=== PATIENT | female | born 1945 | race Caucasian/White ===

== ENCOUNTER → 2016-10-21 12:37 | Outpatient (CLI) | payer MEDICARE, OTHER | END | disposition home or self-care (01) | LOC: D.MRI 12:37 | DX: M79.672 Pain in left foot (principal) ==

== ENCOUNTER → 2017-04-29 07:46 | Outpatient (CLI) | payer MEDICARE, OTHER | END | disposition home or self-care (01) | LOC: D.CT 07:46 | DX: J01.90 Acute sinusitis, unspecified (principal) ==

== ENCOUNTER 2017-07-21 06:47 | Outpatient (CLI) | payer MEDICARE, OTHER ==
[~2017-07-21] VITALS: Ht 165.1 cm; Wt 79.4 kg
--- NOTE | ~2017-07-21 | CN ---
PATIENT NAME:LIN CERVANTES MEDICAL RECORD: [id number] : 49 LOCATION:[facility] ADMIT DATE: ACCOUNT: [id number] CONSULTING PHYSICIAN: CLAY KEEN MD REFERRING PHYSICIAN: ORAL BERUMEN MD DATE OF CONSULTATION: 07/21/2017 CARDIOLOGY CONSULT DIAGNOSES: 1. Shortness of breath. 2. Abnormal ECG. 3. Hypertension. 4. Hyperlipidemia. 5. Preop evaluation. HISTORY OF PRESENT ILLNESS: Mrs. Cervantes is here for maxillofacial surgery. Her EKG shows T-wave inversions throughout the anterolateral leads. She does complain of shortness of breath. No real chest pain. She had a cardiac catheterization 10 years ago that did have some stenosis, but nothing that was bad enough for intervention. PHYSICAL EXAMINATION: GENERAL APPEARANCE: Well-nourished, well-developed, appears stated age. Level of distress, comfortable. PSYCHIATRIC: Mental status, alert, normal affect. Orientation, oriented to time, place and person. EYES: Lids and conjunctiva, noninjected. No discharge, no pallor. ENT: Lips, teeth, gums, normal dentition. Oropharynx, no cyanosis, no pallor. NECK: Carotid arteries, bilateral normal upstroke, no bruits, no thrills. JUGULAR VEINS: No jugular venous pressure or distention. CERVICAL LYMPH NODES: Nontender, nonenlarged. THYROID: Not enlarged. Nontender. No nodules. LUNGS: Respiratory effort, unlabored. CHEST: Normal curvature. No thoracic deformity. No chest wall tenderness. Percussion, resonant. Auscultation, clear. No wheezes, no rales, no rhonchi. CARDIOVASCULAR: Precordial exam, nondisplaced. No heaves or pericardial thrills. Rate and rhythm, regular. Heart sounds, normal S1, normal S2. No S3, no gallop, no rub. Systolic murmur, not heard. Diastolic murmur, not heard. EXTREMITIES: No cyanosis, no edema. Peripheral pulses, full and equal in all extremities, except as noted. No bruits appreciated. ABDOMEN: Soft, nondistended. Normal aorta. No bruit. Nontender. No masses. Liver, nontender, no hepatomegaly. Spleen, nontender, no splenomegaly. MUSCULOSKELETAL: No joint tenderness. No joint swelling. No erythema. NEUROLOGICAL: Normal gait, normal strength, normal tone. SKIN: Warm and dry. REVIEW OF SYSTEMS: The patient reports easy bruising but reports no swollen glands. The patient reports no fever, no night sweats, no significant weight gain, no significant weight loss. No significant exercise tolerance. The patient reports no dry eyes, no irritation, no vision change. Patient reports no difficulty hearing and no ear pain. Patient reports no frequent nose bleeds or nose and sinus problems. Patient reports on arm pain on exertion. No shortness of breath while lying down. No history of heart murmur. Patient reports no cough, no wheezing or coughing up blood. Patient reports no CONSULT REPORT [id number] LIN CERVANTES abdominal pain, no vomiting. Normal appetite. No diarrhea and not vomiting blood. No nausea and no constipation. Patient reports no incontinence. No difficulty urinating. No hematuria. No increased frequency. Patient reports no muscle aches. No weakness, no arthralgias, no back pain. No swelling of the extremities. Patient reports no abnormal mole, no jaundice, no rashes. Reports no loss of consciousness. No weakness and no numbness. No seizures, dizziness, or headaches. The patient reports no depression, no sleep disturbance, feeling safe in a relationship and no alcohol abuse. Patient reports on fatigue. Reports no runny nose or sinus pressure. No itching, no hives, and no frequent sneezing. OVERALL IMPRESSION: Abnormal EKG suggestive of resting ischemia. Shortness of breath was most likely an anginal equivalent. Most likely, she does have hemodynamically significant coronary artery disease. We will proceed with coronary angiography. Further care depends upon the findings of the angiography. TRANSINT:[id number] Voice Confirmation ID: [id number] DOCUMENT ID: [id number] CLAY KEEN MD at 1006 CC: [id number] DICTATION DATE: 07/21/17 1123 MASONRY INSTRUCTOR: 07/21/17 1150 DEP CLI 07/21/17 [place] [id number] [place] [id number]
--- NOTE | ~2017-07-21 | HP ---
PATIENT: RADHA HIGUERA MEDICAL RECORD: [id number] ACCOUNT: [id number] [facility]ATION:[facility] : 49 ADMISSION DATE: 07/21/17 HISTORY AND PHYSICAL EXAMINATION HISTORY OF PRESENT ILLNESS: Radha is a 71-year-old. She has been having persistent sinonasal problems with nasal obstruction and chronic sinusitis. She is being admitted for septoplasty, bilateral inferior turbinate reduction, and right middle meatal antrostomy. PAST MEDICAL HISTORY: Includes reflux and arthritis. PAST SURGICAL HISTORY: Includes hysterectomy, appendectomy, sinus surgery in 1995. MEDICATIONS: Include metoprolol, clonazepam, Beta Estroven, Lyrica, morphine. PHYSICAL EXAMINATION: GENERAL: Healthy-appearing, developmentally normal. FACE: Normal, symmetric, no lesions. EYES: Sclerae and conjunctivae are normal. EARS: Canals are normal. TMs intact. NOSE: Severe right septal deviation. ORAL CAVITY AND OROPHARYNX: Tongue is midline. Palate is normal. NECK: No masses, adenopathy. CHEST: Clear. CARDIOVASCULAR: Regular rate and rhythm, no murmur. EXTREMITIES: Normal. IMPRESSION: Nasal obstruction, septal deviation, chronic maxillary sinusitis. PLAN: Septoplasty, right middle meatal antrostomy, and turbinate reduction. TRANSINT:[id number] Voice Confirmation ID: [id number] DOCUMENT ID: [id number] ORAL BERUMEN MD at 1357 CC: [id number] DICTATION DATE: 07/18/17 1011 EXHIBITION ORGANISER: 07/18/17 [address] [place] [address] [place] [address]
--- NOTE | ~2017-07-21 | HEMODYNAMI ---
PATIENT:LIN HIGUERA MEDICAL RECORD: [id number] : 49 LOCATION:[facility] ADMISSION DATE: 07/21/17 Generatedon:07/21/201711:38 Patient name: LIN HIGUERA Patient #: [id number] SSN: : 1945 Date of study: 07/21/2017 Page: Of Hemodynamic Procedure Report Patient Data Patient Demographics Procedure consent was obtained First Name: LIN Gender: Female Last Name: KALEN : 1945 [facility] Initial: CARRERA Age: 71 year(s) Patient #: [id number] Race: Unknown Additional ID: [id number] Contact details Address: [address] [place] [address] [facility] State: [place] City: [place] Zip code: [address] Admission Admission Data Admission Date: 07/21/2017 Admission Time: 6:47 Lab Results Lab Result Date: 07/21/2017 Lab Result Time: 0:00 Biochemistry Name Units Result Min Max BUN mg/dl 20 --(----)*- 7 18 Creatinine mg/dl 1 --(--*-)-- 0.6 1.3 CBC Name Units Result Min Max Hemoglobin g/dl 12.1 *-(----)-- 13.5 17.5 Procedure Procedure Types Cath Procedure Diagnostic Procedure [facility] w/Coronaries Procedure Description Procedure Date Procedure Date: 07/21/2017 Procedure Start Time: 11:28 Procedure End Time: 11:36 Procedure Staff Name Function Yomi Mendez MD Performing Physician Lorie Bustamante RT Monitor Isaias Khan RT Scrub Leda Mendez RN Nurse Procedure Data Cath Procedure Fluoroscopy Diagnostic fluoroscopy Total fluoroscopy Time: 2.1 time: 2.1 min min Diagnostic fluoroscopy Total fluoroscopy dose: 413 dose: 413 mGy mGy Contrast Material Contrast Material Type Amount (ml) Isovue 300 71 Entry Location Entry Primary Successful Side Size Upsize Upsize Entry Closure Succes sful Closure Location (Fr) 1 (Fr) 2 (Fr) Remarks Device Remarks Femoral Right 5 Fr Exoseal artery Estimated blood loss: 5 ml Diagnostic catheters Device Type Used For End Catheter Placement MULTIPACK Pigtail 5 Fr Procedure catheter MULTIPACK JL 4.0 5Fr Procedure catheter Procedure Complications No complications Procedure Medications Medication Administration Route Dosage Benadryl I.V. 50 mg Oxygen NC 2 l/min Lidocaine 2% added to field 20 Heparin Flush Bag added to field 2 bags (1000units/500ml NS) unlisted medication I.V. drip 100 ml/hr Versed I.V. 1 mg Fentanyl I.V. 50 mcg Versed I.V. 1 mg Fentanyl I.V. 50 mcg Versed I.V. 0.5 mg Hemodynamics Rest HGB: 12.1 (g/dl) Heart Rate: 69 (bpm) Snapshots Pre Cath Intra NCS Post Cath Vital Signs Time Heart Resp SPO2 etCO2 NIBP (mmHg) Rhythm Pain Sedation Rate (ipm) (%) (mmHg) Status Level (bpm) 11:22:50 72 14 97 0 181/78(128) NSR 0 (11) 10(A) , No pain 11:27:45 71 18 95 35.4 139/68(101) NSR 0 (11) 10(A) , No pain 11:32:40 72 16 94 0 130/56(87) NSR 0 (11) 9(A) , No pain 11:37:16 68 17 93 0 129/57(89) NSR 0 (11) 10(A) , No pain Medications Time Medication Route Dose Verified Delivered Reason Notes Effe ctiveness by by 11:21:07 Benadryl I.V. 50 mg Yomi Tompkins used for Vanessa Mendez RN procedure 11:21:20 Oxygen NC 2 Yomi Buffie used for l/min Vanessa Mendez RN procedure 11:21:29 Lidocaine 2% added 20ml Yomi Celaya for local to vial Vanessa Mendez MD anesthetic field 11:21:35 Heparin Flush added 2 Yomi Yomi used for Bag to bags Vanessa Mendez MD procedure (1000units/500ml field NS) 11:21:44 Lactated Ringers I.V. 100 Yomi Buffie used for drip ml/hr Vanessa Mendez RN procedure 11:25:54 Versed I.V. 1 mg Yomi Tompkins for Vanessa Mendez RN sedation 11:26:00 Fentanyl I.V. 50 Yomi Tompkins for mcg Vanessa Mendez RN sedation 11:28:22 Versed I.V. 1 mg Yomi Tompkins for Vanessa Mendez RN sedation 11:28:25 Fentanyl I.V. 50 Yomi Tompkins for mcg Vanessa Mendez RN sedation 11:32:06 Versed I.V. 0.5 Yomi Tompkins for mg Vanessa Mendez RN sedation Procedure Log Time Note 11::50 Time tracking: Regular hours (M-F 7:00 - 5:00) 11:01:54 Plan of Care:Hemodynamics will remain stable., Cardiac rhythm will remain stable., Comfort level will be maintained., Respiratory function will remain adequate., Patient/ family verbilizes understanding of procedure., Procedure tolerated without complication., Recovers from procedure without complications.. 11:01:55 Signed procedure consent form obtained from patient. 11:02:17 Lab Result : BUN 20 mg/dl 11:02:17 Lab Result : Creatinine 1 mg/dl 11:02:17 Lab Result : Hemoglobin 12.1 g/dl 11:04:43 Lorie Bustamante RT(R) sent for patient. Start room use. 11:11:56 Patient received from OR pre holding area to CCL 1 Alert and oriented. Tansferred to table in Supine position. 11:12:16 Warm blankets applied, and daisy hugger turned on for patient comfort. 11:12:16 Correct patient and procedure confirmed by team. 11:12:17 ECG and BP/O2 sat monitors applied to patient. 11:12:22 Pre-procedure instructions explained to patient. 11:12:22 Pre-op teaching completed and patient verbalized understanding. 11:12:24 Family in waiting room. 11:12:25 Patient NPO since Midnight. 11:19:38 Vital chart was started 11:19:43 Baseline sample Acquired. 11:19:48 Rhythm: sinus rhythm 11:19:49 Full Disclosure recording started 11:19:57 Is the patient allergic to Iodine/contrast media? No. 11:20:00 Is patient on blood thinner?No 11:20:02 Patient diabetic? No. 11:20:06 Patient not . Patient is over age 55. 11:20:16 Previous problem with sedation/anesthesia? No ? 11:20:17 Snore? Yes 11:20:19 Sleep apnea? No 11:20:19 Deviated septum? Yes 11:20:37 PT CAME IN BEFORE SINUS SURGERY. 11:20:39 Opens mouth fully? Yes 11:20:40 Sticks out tongue? Yes 11:21:01 Airway obstruction? Yes ASTHMA, BRONCHITIS 11:21:05 Dentures? Yes OUT 11:21:07 Benadryl 50 mg I.V. was administered by Leda Mendez RN; used for procedure; 11:21:08 Pre procedure: right dorsailis pedis pulse 2+ Normal; easily identifiable; not easily obliterated 11:21:12 Patient pain scale 0/10 ?. 11:21:18 IV patent on arrival in left hand with 0.9% NaCl at [facility]. 11:21:20 Oxygen 2 l/min NC was administered by Leda Mendez RN; used for procedure; 11:21:29 Lidocaine 2% 20ml vial added to field was administered by Yomi Mendez MD; for local anesthetic; 11:21:35 Heparin Flush Bag (1000units/500ml NS) 2 bags added to field was administered by Yomi Mendez MD; used for procedure; 11:21:44 Lactated Ringers 100 ml/hr I.V. drip was administered by Leda Mendez RN; used for procedure; 11:22:02 Lab results completed and on chart. 11:22:05 Right groin area was prepped with chlora-prep and draped in sterile fashion 11:22:06 Alarms reviewed by R. N. 11::06 Sharps counted by scrub and verified by R.N. :07 --------ALL STOP TIME OUT------ 11::07 Final Timeout: patient, procedure, and site verified with staff and physician. All members of the team are in agreement. 11:22:09 Right groin site verified by team. 11:22:14 Physical assessment completed. ASA score P 1 - A normal healthy patient as per Yomi Mendez MD. 11:22:17 Sedation plan: IV Moderate Sedation Medication:Versed, Fentanyl 11:22:57 ACIST Syringe (73411) opened to sterile field. 11:23:07 Use device set Femoral Dx 11:23:20 Bag Decanter (2002) opened to sterile field. 11:23:21 ACIST Hand Control (15202) opened to sterile field. 11:23:22 ACIST Manifold (70038) opened to sterile field. 11:23:25 Tegaderm 4 x 4 (1626W) opened to sterile field. 11:23:31 Medline Cath Pack ([id number]) opened to sterile field. 11:23:31 DIAGNOSTIC WIRE .035 260cm J wire (177838) opened to sterile field. 11:23:33 DIAGNOSTIC Multipack 5Fr catheter set ([id number]) opened to sterile field. 11::35 SHEATH Prelude 5Fr 0.035 (LXA-3J-26-035) opened to sterile field. 11::54 Versed 1 mg I.V. was administered by Leda Mendez RN; for sedation; 11:26:00 Fentanyl 50 mcg I.V. was administered by Leda Mendez RN; for sedation; 11:27:16 Zero performed for pressure channel P1 11::21 Procedure started. 11:27:42 Zero performed for pressure channel P1 11:28:08 Local anesthetic to right femoral artery with Lidocaine 2% by Yomi Mendez MD.INITIAL ACCESS ONLY 11::22 Versed 1 mg I.V. was administered by Leda Mendez RN; for sedation; 11::25 Fentanyl 50 mcg I.V. was administered by Leda Mendez RN; for sedation; 11::32 A 5 Fr sheath was inserted into the Right Femoral artery 11::54 A MULTIPACK Pigtail 5 Fr catheter was advanced over the wire and used for Procedure. 11:28:59 LV gram done using SPENCE 11::08 Injector settings: Ml/sec: 10, Volume: 20, 11:30:06 EF : 60 % 11:30:09 Catheter removed. 11:30:15 A MULTIPACK JL 4.0 5Fr catheter was advanced over the wire and used for Procedure. 11:31:31 LCA angiography performed. 11:31:33 Catheter removed. 11:32:06 Versed 0.5 mg I.V. was administered by Leda Mendez RN; for sedation; 11:32:57 RCA angiography performed. 11:33:21 Catheter removed. 11:33:29 EXOSEAL 5Fr (EX500) opened to sterile field. 11:33:41 Sheath removed intact; hemostasis achieved with Exoseal to the Right Femoral artery. 11:34:15 Procedure ended.(Physican Out) 11:34:23 Fluoroscopy time 02.10 minutes. 11:34:26 Fluoroscopy dose: 413 mGy 11:34:26 Flurop Dose total: 413 11:34:29 Contrast amount:Isovue 300 71ml. 11:34:31 Sharps counted by scrub and verified by R.N. 11:34:34 Post-op/insertion site Right Femoral artery dressed using a 4 x 4 and Tegaderm. 11:34:37 Post right femoral artery:stable, soft, clean and dry 11:34:42 Post-procedure physical assessment completed. ASA score P 2 - A patient with mild systemic disease as per Yomi Mendez MD. 11:34:45 Post procedure rhythm: unchanged. 11:34:47 Estimated blood loss: 5 ml 11:34:48 Post procedure instruction explained to patient.Patient verbalizes understanding. 11:34:49 Patient needs reinforcement of post procedure teaching. 11:36:27 Procedure and supply charges have been captured, reviewed, submitted and are correct. 11:36:30 Procedure Complication : No complications 11:36:32 Vital chart was stopped 11:36:34 See physician's report for complete and final results. 11:36:35 Report given to Pre/Post Procedure Room. 11:36:37 Patient transfered to Pre/Post Procedure Room with Bed. 11:36:41 Procedure ended. 11:36:41 Full Disclosure recording stopped 11:36:43 End room use (Document Last) Device Usage Item Name Manufacture Quantity Catalog Number Hospital Part Current M inimal Lot# / Charge Number Stock Stock Serial# Code ACIST Syringe Acist 1 21421 135281 624306 815178 2 0 (90545) [employer] Bag Decanter Microtek 1 2001S 096075 00517 883747 5 (2001S) Medical Inc. ACIST Hand Acist 1 47358 417372 285090 620853 5 Control (99695) [employer] ACIST Manifold Acist 1 12085 281175 454187 569766 5 (62642) [employer] Inc Tegaderm 4 x 4 3M 1 1626W 630722 240601 385673 5 (1626W) Medline Cath Cardinal 1 [id number] 540133 55234 603313 5 [facility] ([id number]) DIAGNOSTIC WIRE [facility] 1 428544 019508 280720 304945 3 0 .035 260cm J wire (783844) DIAGNOSTIC Cardinal 1 [id number] 936445 71970 850961 3 0 Multipack 5Fr Health catheter set ([id number]) SHEATH Prelude Merit 1 ZCR-1N-83 326236 965129 381221 5 5Fr 0.035 Medical ([id number]) MULTIPACK Cardinal 1 [id number] 5 Pigtail 5 Fr Health catheter MULTIPACK JL Cardinal 1 [id number] 5 4.0 5Fr Health catheter EXOSEAL 5Fr Cardinal 1 EX500 368040 700209 861853 1 0 (EX500) Health Signature Audit [place] Stage Time Signature Unsigned Intra-Procedure 07/21/2017 Lorie Bustamante 11:38:28 AM RT(R) Signatures Monitor : Lorie Bustamante Signature : RT Date : Time : [place] [id number] [place] [address]
--- NOTE | ~2017-07-21 | OP ---
PATIENT NAME: LIN HIGUERA MEDICAL RECORD: [id number] :49 LOCATION:[facility] ADMISSION DATE: SURGEON: CLAY KEEN MD DATE OF OPERATION: 07/21/2017 PROCEDURES: 1. Left heart catheterization. 2. Selective coronary angiography. 3. Left ventriculogram. INDICATION: Abnormal ECG, shortness of breath, preop evaluation, hypertension, hyperlipidemia. PROCEDURE IN DETAIL: After informed consent was obtained and after a detailed description of risks, benefits as well as alternative therapies, the patient elected to proceed with angiogram and heart catheterization. The right femoral area was prepped and draped in normal sterile fashion. Right femoral artery was cannulated via modified Seldinger technique with placement of 5-Thai sheath. All catheters exchanged through this sheath. FINDINGS: The left ventriculogram was performed in standard 30-degree SPENCE view, reveals good cardiac wall motion throughout all segments. Overall ejection fraction estimated 60%. SELECTIVE CORONARY ANGIOGRAPHY: Left main, left anterior descending, left circumflex, right coronary artery are all smooth-walled vessels with no angiographic evidence of coronary artery disease. OVERALL IMPRESSION: 1. No angiographic evidence of coronary artery disease. 2. Normal left heart pressures. 3. Normal left ventricular systolic function. Symptomatology is noncardiac. Abnormal ECG is not due to ischemic heart disease. TRANSINT:[id number] Voice Confirmation ID: [id number] DOCUMENT ID: [id number] CLAY KEEN MD at 1006 CC: [id number] DICTATION DATE: 07/21/17 1137 TIRE MOLD ENGRAVER: 07/21/17 1152 DEP CLI 07/21/17 [place] [id number]
[~2017-07-21 06:47] MED LIST: ARAVA10 MG; ASCORBIC ACID500 MG PO; CALTRATE 600 M600 M1 PO; CENTRUM SILVER1 TA1 PO; DIFLUCAN200 MG PO; EC-NAPROSYN500 MG PO; ENBREL50 MG/ML SQ; FOLIC ACID1 MG PO; KLONOPIN1 MG PO; LYRICA50 MG PO; LYSINE1000 MG PO; METOPROLOL TART50 MG PO; OMEGA 3 FISH OI1 CAP PO; OMEPRAZOLE20 M1 PO; PHENERGAN DM SYR5 ML; POTASSIUM99 M1 PO; ULTRAM50 MG PO; VITAMIN D31000 UNIT PO; ZANAFLEX2 M1 PO; ZINC50 MG PO
[2017-07-21] MEDS ORDERED: MUCINEX1200 MG/BO PO (07:40)
[2017-07-21] MEDS ORDERED: ZINC50 MG PO (07:41)
[2017-07-21] MEDS ORDERED: ALLEGRA-D1 TAB.SR . PO (07:41)
[2017-07-21] MEDS ORDERED: VITAMIN C1000 MG PO (07:42)
[2017-07-21] MEDS ORDERED: VITAMIN D31000 UNIT PO (07:42)
[2017-07-21] MEDS ORDERED: VITAMIN B COMPL1 TAB PO (07:42)
[2017-07-21 07:52] VITALS: BP 131/68; Ht 165.1 cm; Wt 79.4 kg
[2017-07-21 07:56] LABS: HEMATOCRIT 36.3 % (36.0-48.0); HEMOGLOBIN 12.1 g/dL (12-16); MCH 31.2 pg (26.0-34.0); MCHC 33.3 g/dL (31.0-37.0); MCV 93.6 fL (80.0-100.0); MEAN PLATELET VOLUME 10.6 fL (7.4-10.4); RBC 3.88 10x6/uL (4.00-5.40); RDW 14.9 % (11.5-14.5); WBC 5.6 10x3/uL (4.8-10.8)
[2017-07-21 08:19] LABS: ANION GAP 14.5 mmol/L (8-16); CALCIUM 8.9 mg/dL (8.5-10.1); CARBON DIOXIDE 24.8 mmol/L (21.0-32.0); POTASSIUM - SERUM 4.3 mmol/L (3.5-5.1)
== END 2017-07-21 12:00 | disposition home or self-care (01) ==
LOC: D.OPS 06:47 → D.PAN 07:30 → D.OPS 07:30 → D.PAN 07:45 → EDSTATUS 07:45 → D.OPS 08:45
PROVIDERS: Anesthesiology
DX: R07.9 Chest pain, unspecified (principal); R94.31 Abnormal electrocardiogram [ECG] [EKG]; I10 Essential (primary) hypertension; E78.5 Hyperlipidemia, unspecified; J34.89 Other specified disorders of nose and nasal sinuses; Z01.810 Encounter for preprocedural cardiovascular examination; Z01.812 Encounter for preprocedural laboratory examination

== ENCOUNTER 2017-08-11 06:39 | Day surgery (SDC) | payer MEDICARE, OTHER ==
[~2017-08-11] VITALS: Ht 165.1 cm; Wt 79.4 kg
--- NOTE | ~2017-08-11 | HP ---
PATIENT: RADHA HIGUERA MEDICAL RECORD: [id number] ACCOUNT: [id number] LOCATION:[facility] : 49 ADMISSION DATE: 08/11/17 HISTORY AND PHYSICAL EXAMINATION HISTORY OF PRESENT ILLNESS: Radha is 71 years old. She has persistent problems with nasal obstruction and chronic sinusitis. She is being admitted for septoplasty, turbinate reduction, and right middle meatal antrostomy. PAST MEDICAL HISTORY: Includes reflux. PAST SURGICAL HISTORY: Includes hysterectomy, appendectomy, right tympanoplasty. CURRENT MEDICATIONS: Include metoprolol, clonazepam, Embeda, Estroven, Lyrica. PHYSICAL EXAMINATION: GENERAL: Healthy-appearing, developmentally normal. FACE: Normal, symmetric, no lesions. EYES: Sclerae and conjunctivae are normal. EARS: Canals and TMs are normal. She does have intact TM on the left, but consistent with a tympanoplasty. NOSE: She has a severe right septal deviation. ORAL CAVITY AND OROPHARYNX: Dentition in midline. Pharynx is normal. NECK: No mass, no adenopathy. CHEST: Clear. CARDIOVASCULAR: Regular rate and rhythm, no murmur. IMPRESSION: Nasal obstruction, right septal deviation, chronic right maxillary sinusitis. PLAN: Septoplasty, right middle meatal antrostomy, bilateral inferior turbinate reduction. TRANSINT:[id number] Voice Confirmation ID: [id number] DOCUMENT ID: [id number] ORAL BERUMEN MD at 1258 CC: [id number] DICTATION DATE: 08/08/17 1449 PIECE MARKER SMALL ARMS: 08/08/17 1458 [facility] [address] [place] [address]
--- NOTE | ~2017-08-11 | OP ---
PATIENT NAME: LIN HIGUERA MEDICAL RECORD: [id number] :49 LOCATION:[facility] ADMISSION DATE: SURGEON: DOM GARCIA MD DATE OF OPERATION: 08/11/2017 PREOPERATIVE DIAGNOSES: Nasal obstruction, septal deviation, turbinate hypertrophy, and right maxillary sinusitis. POSTOPERATIVE DIAGNOSES: Nasal obstruction, septal deviation, turbinate hypertrophy, and right maxillary sinusitis. PROCEDURES: 1. Septoplasty. 2. Right endoscopic middle meatal antrostomy. 3. Bilateral inferior turbinate reduction. SURGEON: Dom Garcia MD ANESTHESIA: General orotracheal. BLOOD LOSS: Less than 5 cc. SPECIMENS: Portion of inferior turbinate and septum. COMPLICATIONS: None. DISPOSITION: Recovery, stable. NASAL PACKING: None. PROCEDURE: She was brought to the operating room, placed in the supine position, sedated and intubated by anesthesia. The table was turned 90 degrees. She was positioned for nasal surgery. Using 0-degree scope, the nose was examined. She had already been decongested with Afrin preoperatively. Both the inferior turbinates, the septum, the right middle turbinate, and the uncinate were injected with a total of 1.5 cc of 1% lidocaine with 1:100,000 epinephrine. She was positioned, prepped and draped in usual sterile fashion. Some Afrin pledgets were placed as well. After waiting for decongestion, we got her positioned. The pledgets were removed. The nose was examined, left side first. The inferior middle turbinate was normal. There were no masses or polyps. The nasopharynx was normal. The septum was deviated to the right with a large septal spur to the right. The right inferior middle turbinate was normal as well. In the middle meatus, she definitely had a previous at least partial ethmoidectomy. There was no obvious maxillary ostia. The nasopharynx was normal. A curved olive tip suction was inserted through a thin membrane in the middle meatus to enter the maxillary sinus. This was opened with a backbiter with minimal bleeding. There was no material in the sinus. The mucosa looked normal with angled scope. It was irrigated, suctioned, and cleaned. Nice ostia was created there. Then, both inferior turbinates were medialized. A Gruenwald was used to takedown inferior redundant portion of the inferior turbinates. Suction cautery was used to stop any bleeding and both outfractured with a Orosi elevator. A right-sided Praesel incision was made and ipsilateral mucoperichondrial flap was elevated. The septum was folded out on the floor over a bony spur inferiorly and that was dissected out with a caudal. I then fractured it off and removed. Bony cartilaginous junction was disarticulated OPERATIVE REPORT [id number] LIN HIGUERA and a contralateral mucoperichondrial flap was elevated over a spur. Incisions were used to make a cut above and below that and that was removed. This allowed the septal mucosa to fall back to the midline. The Praesel incision was closed with interrupted 4-0 chromic. With the septum midline and good airway on both sides, the nasopharynx was suctioned. The Washburn splints were placed bilaterally with some mupirocin ointment and sutured to the anterior membranous septum with 2-0 Prolene on a Jerome needle. She was awakened, extubated, and transported to recovery in good condition. No complications. TRANSINT:[id number] Voice Confirmation ID: [id number] DOCUMENT ID: [id number] DOM GARCIA MD at 1702 CC: [id number] DICTATION DATE: 08/11/17 1215 OUTSIDE INSTALLATION MACHINIST: 08/11/17 1301 [facility] 08/11/17 [facility] [address] [place] [address]
[~2017-08-11 06:39] MED LIST changes: +ALLEGRA-D1 TAB.SR . PO; +MUCINEX1200 MG/BO PO; +VITAMIN B COMPL1 TAB PO; +VITAMIN C1000 MG PO
[2017-08-11 07:21] LABS: HEMATOCRIT 39.9 % (36.0-48.0); HEMOGLOBIN 13.4 g/dL (12-16); MCH 31.6 pg (26.0-34.0); MCHC 33.6 g/dL (31.0-37.0); MCV 94.1 fL (80.0-100.0); MEAN PLATELET VOLUME 10.3 fL (7.4-10.4); RBC 4.24 10x6/uL (4.00-5.40); RDW 15.2 % (11.5-14.5); WBC 6.2 10x3/uL (4.8-10.8)
[2017-08-11 07:30] VITALS: BP 170/83; Ht 165.1 cm; Wt 79.4 kg
== END 2017-08-11 14:59 | disposition home or self-care (01) ==
LOC: D.OPS 06:39 → D.PAN 08:30 → D.OPS 08:45 → D.PAN 08:45 → D.OPS 09:30 → D.PAN 09:30 → D.OPS 14:59
PROVIDERS: Anesthesiology
DX: J34.89 Other specified disorders of nose and nasal sinuses (principal); J34.2 Deviated nasal septum; J34.3 Hypertrophy of nasal turbinates; J32.0 Chronic maxillary sinusitis; Z01.812 Encounter for preprocedural laboratory examination

== ENCOUNTER 2018-01-26 23:46 | Inpatient (IN) | payer MEDICARE, OTHER ==
[~2018-01-26] VITALS: Ht 165.1 cm; Wt 77.3 kg
--- NOTE | ~2018-01-26 | MORECARE ---
CASE MANAGEMENT DISCHARGE SUMMARY PATIENT: LIN HIGUERA UNIT: [id number] ADM DATE: 01/27/18 AGE: 72 : [birth year] SEX: F ROOM/BED: D.3978 AUTHOR: RUBIO LIZ PHYSICIAN: REFERRING PHYSICIAN: BAKARI ALEXANDER MD DATE OF SERVICE: 01/28/18 Discharge Plan Patient Name: LIN HIGUERA [facility] [facility] 1945 Planned Disposition: Anticipated Discharge Date: Discharge Date: Expected LOS: Initial Reviewer: [email or web address] Initial Review Date: 01/28/2018 Generated: 01/28/18 2:26 pm Coverage Notice Reviewer: [id number] - Deepika Lisa Notice Issued Date-Time: 01/28/2018 13:13 Notice Type: Medicare Outpatient Observation Notice Notice Delivered To: Patient Relationship to Patient: Self Records Management Associate Name: Delivery Method: HAND - Hand Delivered Bernie Days: Prior Verbal Notification: Recipient Understood Notice: Yes Recipient Signature: Yes Med Rec Note Co-signed by Attending: Coverage Notice Comment: Patient Name: LIN HIGUERA Page 39223 at 1326 All edits/amendments must be made on the electronic document DICTATION DATE: 01/28/18 1326 DESK LIEUTENANT: MIKE 01/28/18 1326 RPT#: [id number] DC DATE: STATUS: ADM IN [facility] [address] [place] [address] END OF REPORT
--- NOTE | ~2018-01-26 | MORECARE ---
CASE MANAGEMENT DISCHARGE SUMMARY PATIENT: LIN HIGUERA CARRERA UNIT: [id number] ADM DATE: 01/29/18 AGE: 72 : [birth year] SEX: F ROOM/BED: D.6055 AUTHOR: SHALONDA,DOC PHYSICIAN: REFERRING PHYSICIAN: BAKARI ALEXANDER MD DATE OF SERVICE: 02/04/18 Discharge Plan Patient Name: LIN HIGUERA Facility: [facility]:[place] : 1945 Planned Disposition: Home Anticipated Discharge Date: 02/04/18 Discharge Date: Expected LOS: 6 Initial Reviewer: [email or web address] Initial Review Date: 01/28/2018 Generated: 02/04/18 5:49 pm Comments DCP- Discharge Planning Updated by [email or web address]: Dima Marroquin on 02/04/18 3:[address] Patient Name: LIN HIGUERA Admission Status: ER Accout number: [id number] Admission Date: 01-29-2018 : 1945 Admission Diagnosis:OTHER CHEST PAIN Attending: BAKARI ALEXANDER Current LOS: 6 Anticipated DC Date: 02-04-2018 Planned Disposition: Home Primary Insurance: MEDICARE A & B Discharge Planning Comments: CM MET WITH PT IN ROOM TO DISCUSS DISCHARGE PLANNING AND NEEDS. PT REPORTS LIVING AT HOME INDEPENDENTLY ON THE MAIN LEVEL OF HER HOME, HER ADULT SON LIVES UPSTAIRS AND ASSISTS WITH CHOIES IN THE HOME. PT HAS CANE, FOUR PRONGED CANE AND ROLLING WALKER WITH NO MEDICAL EQUIPMENT PROVIDER PREFERENCE. PT HAS NO OUTSIDE SERVICES ASSISTING IN THE HOME. CM DISCUSSED AVAILABILITY OF HOME HEALTH, REHAB SERVICES AND MEDICAL EQUIPMENT. 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 PT REPORTS HER SON WILL PICK HER UP FOR DISCHARGE HOME. IMPORTANT MESSAGE FROM MEDICARE PROVIDED AND EXPLAINED. OPERATING ROOM COORDINATOR NURSE NOTIFIED. Laundry Machine Operator: Dima Marroquin DCPIA - Discharge Planning Initial Assessment Updated by [id number]: Dima Marroquin on 02/04/18 4:47 pm * Is the patient Alert and Oriented? Yes * How many steps to enter\exit or inside your home? NONE * PCP DR. KEITA * Pharmacy [facility] [address] * Preadmission Environment Home with Family * ADLs Independent * Equipment Cane Rolling Walker * Other Equipment 4 PRONGED CANE WELL SINGLE TIP CANE NO MEDICAL EQUIPMENT PROVIDER PREFERENCE * List name and contact numbers for known caregivers / representatives who currently or will assist patient after discharge: CYNDIE HIGUERA JR, SON, * Verbal permission to speak to the caregivers and representatives has been obtained from the patient. N/A * Community resources currently utilized None * Please name any agencies selected above. NONE * Additional services required to return to the preadmission environment? No * Can the patient safely return to the preadmission environment? Yes * Has this patient been hospitalized within the prior 30 days at any hospital? No Coverage Notice Reviewer: [id number] Leeanne Lisa Notice Issued Date-Time: 01/28/2018 13:13 Notice Type: Medicare Outpatient Observation Notice Notice Delivered To: Patient Relationship to Patient: Self Truck Bracer Name: Delivery Method: HAND - Hand Delivered Bernie Days: Prior Verbal Notification: Recipient Understood Notice: Yes Recipient Signature: Yes Med Rec Note Co-signed by Attending: Coverage Notice Comment: Reviewer: [id number] - Dima Marroquin Notice Issued Date-Time: 02/04/2018 14:53 Notice Type: IM Discharge Notice Notice Delivered To: Patient Relationship to Patient: Truck Bracer Name: Delivery Method: HAND - Hand Delivered Bernie Days: Prior Verbal Notification: Recipient Understood Notice: Yes Recipient Signature: Yes Med Rec Note Co-signed by Attending: Coverage Notice Comment: Last DP export: 01/28/18 12:26 p Patient Name: LIN HIGUERA Page 25245 at 1649 All edits/amendments must be made on the electronic document DICTATION DATE: 02/04/181647 AUTO TRANSMISSION SPECIALIST: MIKE 02/04/181647 RPT#: [id number] DC DATE: STATUS: ADM IN [facility] [address] [place] [address] END OF REPORT
--- NOTE | ~2018-01-26 | EC ---
PATIENT:LIN HIGUERA DATE OF SERVICE: 01/27/18 SEX: F MEDICAL RECORD: [id number] DATE OF : [birth year] LOCATION:D.M2 D.212 AGE OF PATIENT: 72 ADMISSION DATE: 01/29/18 REFERRING PHYSICIAN: INTERPRETING PHYSICIAN: CLAY MENDEZ MD ECHOCARDIOGRAM REPORT ECHO CHARGES 4 ECHO COMPLETE Date: 01/27/18 CLINICAL DIAGNOSIS: HTN ECHOCARDIOGRAPHIC MEASUREMENTS (adult normal given) AC root (d.<3.7cm) 3.3 cm LV Septum d (<1.2 cm> 1.4 cm Valve Excursion 2.1 cm LV Septum (systole) 1.6 cm Left Atria (s.<4.0cm> 2.8 cm LVPW d(<1.2cm) 1.4 cm RV (d.<2.3cm) 3.4 cm LVPW (sytole) 1.8 cm LV diastole(<5.6CM) 3.9 cm MV E-F(>70mm/sec) cm LV systole 2.5 cm LVOT Diameter 1.8 cm MV exc.(>10mm) 1.7 cm Est.ejection fraction (50-75%) % DOPPLER: LVIT cm/sec A 72.0 cm/sec E 62.0 cm/sec LA cm/sec RVSP 20 mmHg LVOT 86 cm/sec AOP1/2T m/s Asc. Ao 159 cm/sec RVOT 80 cm/sec RA cm/sec PA 88 cm/sec AV Gradient Peak 10.17mmHg AV Mean 5.18 mmHg AV Area 1.4 cm MV Gradient Peak 3.68 mmHg MV Mean 1.43 mmHg MV Area cm COMMENTS: Reconstructive Dentist: Fidencio [facility] Rn: 1 Dr. Mendez TAPE# PACS Pericardial Effusion N DATE OF SERVICE: 01/27/2018 FINDINGS: 1. Left ventricular chamber size is within normal limits. Left ventricular systolic function is normal. Overall ejection fraction estimated at 60%. 2. Left atrium, right atrium, and right ventricle chamber sizes are within normal limits. 3. Valvular structures have normal structure and motion. 4. Doppler interrogation only reveals trace tricuspid regurgitation, no other valvular insufficiency or stenosis. Pulmonary systolic pressure is normal ECHOCARDIOGRAM REPORT [id number] LIN HIGUERA estimated at 20 mmHg. 5. No evidence of pericardial effusion or left ventricular thrombus. TRANSINT:[id number] Voice Confirmation ID: [id number] DOCUMENT ID: [id number] CLAY MENDEZ MD at 1059 CC: [id number] DICTATION DATE: 01/27/18 1243 PASTRY COOK APPRENTICE: 01/27/18 1248 ADM IN [facility] [address] [place] [address]
[2018-01-27] MEDS ORDERED: CARAFATE1 G PO (00:01)
[2018-01-27 00:48] LABS: BASOPHILS 0.5 % (0-2); EOSINOPHILS 8.4 % (0-7); HEMATOCRIT 38.1 % (36.0-48.0); HEMOGLOBIN 12.8 g/dL (12-16); IMMATURE GRANULOCYTES 0.4 % (0-5); LYMPHOCYTES 27.1 % (15-50); MCH 31.3 pg (26.0-34.0); MCHC 33.6 g/dL (31.0-37.0); MCV 93.2 fL (80.0-100.0); MEAN PLATELET VOLUME 10.4 fL (7.4-10.4); MONOCYTES 10.8 % (2-11); NEUTROPHILS 52.8 % (40-80); PLATELET COUNT 231 10x3/uL (130-400); RBC 4.09 10x6/uL (4.00-5.40); RDW 14.9 % (11.5-14.5); WBC 8.3 10x3/uL (4.8-10.8)
[2018-01-27 00:52] LABS: ALBUMIN 2.9 g/dL (3.4-5.0); ALKALINE PHOSPHATASE 114 U/L (46-116); ALT (SGPT) 37 U/L (10-68); BILIRUBIN - TOTAL 0.39 mg/dL (0.2-1.3); CALC OSMOLALITY 279 mosm/kg (275-300); CALCIUM 8.8 mg/dL (8.5-10.1); CARBON DIOXIDE 26.7 mmol/L (21.0-32.0); CHLORIDE - SERUM 103 mmol/L (98-107); GLUCOSE 132 mg/dL (74-106); PROTEIN - SERUM 6.8 g/dL (6.4-8.2); SODIUM 138 mmol/L (136-145); UREA NITROGEN 17 mg/dL (7-18); eGFR NON AFRICAN AMERICAN 58 mL/min (90-120)
[2018-01-27 01:01] LABS: CKMB 0.8 U/L (0.0-3.6); CREATINE KINASE 42 UL (21-215); TROPONIN-I < 0.017 ng/mL (0.000-0.060)
[2018-01-27 02:00] LABS: APPEARANCE CLEAR (CLEAR); BILIRUBIN NEGATIVE (NEGATIVE); COLOR YELLOW (YELLOW); GLUCOSE NEGATIVE (NEGATIVE); KETONE NEGATIVE (NEGATIVE); NITRITE NEGATIVE (NEGATIVE); PROTEIN TRACE mg/dL (NEGATIVE); SPECIFIC GRAVITY 1.015 (1.005-1.020); UROBILINOGEN NORMAL (NORMAL)
[2018-01-27 02:01] LABS: BACTERIA FEW /hpf (NONE SEEN); EPITHELIAL CELLS 0-5 /hpf (0-5); RED CELLS - URINE 0-5 /hpf (0-5); WHITE CELLS - URINE 0-5 /hpf (0-5)
[2018-01-27 05:01] VITALS: BP 149/87
[2018-01-27 08:33] VITALS: BP 123/66
[2018-01-27 16:26] VITALS: BP 108/50
[2018-01-27 21:31] VITALS: BP 128/52
[2018-01-28] VITALS (7 sets, daily range): BP systolic 102–142; BP diastolic 48–78
[2018-01-28 04:58] LABS: BASOPHILS 0.7 % (0-2); EOSINOPHILS 10.3 % (0-7); HEMATOCRIT 36.8 % (36.0-48.0); HEMOGLOBIN 12.1 g/dL (12-16); IMMATURE GRANULOCYTES 0.1 % (0-5); LYMPHOCYTES 43.8 % (15-50); MCH 30.8 pg (26.0-34.0); MCHC 32.9 g/dL (31.0-37.0); MCV 93.6 fL (80.0-100.0); MEAN PLATELET VOLUME 10.3 fL (7.4-10.4); MONOCYTES 12.8 % (2-11); NEUTROPHILS 32.3 % (40-80); PLATELET COUNT 223 10x3/uL (130-400); RBC 3.93 10x6/uL (4.00-5.40); RDW 15.1 % (11.5-14.5); WBC 6.8 10x3/uL (4.8-10.8)
[2018-01-28 05:21] LABS: ANION GAP 13.8 mmol/L (8-16); CALCIUM 9.2 mg/dL (8.5-10.1); CARBON DIOXIDE 26.3 mmol/L (21.0-32.0); CHOL - HDL RATIO 5.4 ratio (2.3-4.1); CREATININE - SERUM 0.9 mg/dL (0.6-1.3); LDL-HDL RATIO 3.5 ratio (1.5-3.5); POTASSIUM - SERUM 4.1 mmol/L (3.5-5.1)
[2018-01-29 00:49] VITALS: BP 110/47
[2018-01-29 05:45] LABS: BASOPHILS 0.6 % (0-2); EOSINOPHILS 7.6 % (0-7); HEMATOCRIT 34.7 % (36.0-48.0); HEMOGLOBIN 11.6 g/dL (12-16); IMMATURE GRANULOCYTES 0.2 % (0-5); LYMPHOCYTES 32.3 % (15-50); MCH 31.5 pg (26.0-34.0); MCHC 33.4 g/dL (31.0-37.0); MCV 94.3 fL (80.0-100.0); MEAN PLATELET VOLUME 10.5 fL (7.4-10.4); MONOCYTES 12.6 % (2-11); NEUTROPHILS 46.7 % (40-80); PLATELET COUNT 237 10x3/uL (130-400); RBC 3.68 10x6/uL (4.00-5.40); RDW 15.3 % (11.5-14.5)
[2018-01-29 05:50] LABS: WBC 8.8 10x3/uL (4.8-10.8)
[2018-01-29 05:56] LABS: CALC OSMOLALITY 284 mosm/kg (275-300); CALCIUM 9.4 mg/dL (8.5-10.1); CARBON DIOXIDE 26.6 mmol/L (21.0-32.0); CHLORIDE - SERUM 104 mmol/L (98-107); CREATININE - SERUM 0.8 mg/dL (0.6-1.3); GLUCOSE 105 mg/dL (74-106); POTASSIUM - SERUM 3.8 mmol/L (3.5-5.1); SODIUM 142 mmol/L (136-145); UREA NITROGEN 19 mg/dL (7-18); eGFR NON AFRICAN AMERICAN 75 mL/min (90-120)
[2018-01-29 05:58] VITALS: BP 115/52
[2018-01-29 08:54] VITALS: BP 142/66
[2018-01-29 10:50] VITALS: BP 123/59
[2018-01-29 13:34] VITALS: BMI 28.2
[2018-01-29 14:14] VITALS: BP 132/64
[2018-01-29 19:00] VITALS: BP 152/72
[2018-01-30 02:11] VITALS: BP 102/48
[2018-01-30 04:00] VITALS: BP 112/54
[2018-01-30 06:33] LABS: CALC OSMOLALITY 278 mosm/kg (275-300); CALCIUM 9.2 mg/dL (8.5-10.1); CARBON DIOXIDE 25.3 mmol/L (21.0-32.0); CHLORIDE - SERUM 102 mmol/L (98-107); CREATININE - SERUM 0.8 mg/dL (0.6-1.3); GLUCOSE 102 mg/dL (74-106); POTASSIUM - SERUM 3.6 mmol/L (3.5-5.1); SODIUM 138 mmol/L (136-145); UREA NITROGEN 20 mg/dL (7-18); eGFR NON AFRICAN AMERICAN 75 mL/min (90-120)
[2018-01-30 06:36] LABS: BASOPHILS 0.6 % (0-2); EOSINOPHILS 8.7 % (0-7); HEMATOCRIT 34.7 % (36.0-48.0); HEMOGLOBIN 11.4 g/dL (12-16); IMMATURE GRANULOCYTES 0.2 % (0-5); LYMPHOCYTES 38.8 % (15-50); MCH 31.1 pg (26.0-34.0); MCHC 32.9 g/dL (31.0-37.0); MCV 94.8 fL (80.0-100.0); MEAN PLATELET VOLUME 10.8 fL (7.4-10.4); NEUTROPHILS 38.7 % (40-80); PLATELET COUNT 246 10x3/uL (130-400); RBC 3.66 10x6/uL (4.00-5.40); RDW 15.5 % (11.5-14.5); WBC 8.9 10x3/uL (4.8-10.8)
[2018-01-30 07:33] VITALS: BP 117/54
[2018-01-30 11:43] VITALS: BP 118/71
[2018-01-30 15:54] VITALS: BP 152/79
[2018-01-30 20:00] VITALS: BP 131/71
[2018-01-31 00:10] VITALS: BP 129/67
[2018-01-31 04:00] VITALS: BP 122/57
[2018-01-31 06:11] LABS: BASOPHILS 0.1 % (0-2); EOSINOPHILS 0 % (0-7); HEMATOCRIT 34.9 % (36.0-48.0); HEMOGLOBIN 11.5 g/dL (12-16); IMMATURE GRANULOCYTES 0.3 % (0-5); LYMPHOCYTES 19.3 % (15-50); MCH 30.9 pg (26.0-34.0); MCV 93.8 fL (80.0-100.0); MEAN PLATELET VOLUME 10.8 fL (7.4-10.4); MONOCYTES 3.3 % (2-11); RBC 3.72 10x6/uL (4.00-5.40); RDW 15.1 % (11.5-14.5); WBC 9.7 10x3/uL (4.8-10.8)
[2018-01-31 06:19] LABS: PLATELET COUNT 307 10x3/uL (130-400)
[2018-01-31 06:30] LABS: AMYLASE - SERUM 45 U/L (25-115); CALCIUM 9.7 mg/dL (8.5-10.1); CARBON DIOXIDE 25.4 mmol/L (21.0-32.0); CHLORIDE - SERUM 103 mmol/L (98-107); CREATININE - SERUM 0.8 mg/dL (0.6-1.3); LIPASE 112 U/L (73-393); SODIUM 139 mmol/L (136-145); UREA NITROGEN 21 mg/dL (7-18); eGFR NON AFRICAN AMERICAN 75 mL/min (90-120)
[2018-01-31 06:33] LABS: CALC OSMOLALITY 283 mosm/kg (275-300); GLUCOSE 150 mg/dL (74-106); POTASSIUM - SERUM 4.8 mmol/L (3.5-5.1)
[2018-01-31 11:55] VITALS: BP 177/57
[2018-01-31 17:19] VITALS: BP 156/76
[2018-01-31 20:00] VITALS: BP 150/78
[2018-02-01 00:06] VITALS: BP 178/82
[2018-02-01 04:00] VITALS: BP 136/77
[2018-02-01 06:52] LABS: BASOPHILS 0.1 % (0-2); EOSINOPHILS 0 % (0-7); HEMOGLOBIN 11.7 g/dL (12-16); IMMATURE GRANULOCYTES 0.4 % (0-5); LYMPHOCYTES 15.3 % (15-50); MCH 31.4 pg (26.0-34.0); MCHC 33.4 g/dL (31.0-37.0); MCV 93.8 fL (80.0-100.0); MONOCYTES 4.4 % (2-11); NEUTROPHILS 79.8 % (40-80); PLATELET COUNT 314 10x3/uL (130-400); RBC 3.73 10x6/uL (4.00-5.40); RDW 15.2 % (11.5-14.5)
[2018-02-01 06:53] LABS: WBC 14.8 10x3/uL (4.8-10.8)
[2018-02-01 07:11] LABS: ANION GAP 16.1 mmol/L (8-16); CALCIUM 8.8 mg/dL (8.5-10.1); CARBON DIOXIDE 25.5 mmol/L (21.0-32.0); CREATININE - SERUM 0.9 mg/dL (0.6-1.3); POTASSIUM - SERUM 4.6 mmol/L (3.5-5.1)
[2018-02-01 08:44] VITALS: BP 154/71
[2018-02-01 12:09] VITALS: BP 142/64
[2018-02-01 20:30] VITALS: BP 171/73
[2018-02-02 00:30] VITALS: BP 144/68
[2018-02-02 04:30] VITALS: BP 126/69
[2018-02-02 06:51] LABS: BASOPHILS 0 % (0-2); EOSINOPHILS 0 % (0-7); HEMATOCRIT 34.1 % (36.0-48.0); HEMOGLOBIN 11.3 g/dL (12-16); IMMATURE GRANULOCYTES 0.6 % (0-5); LYMPHOCYTES 18.3 % (15-50); MCHC 33.1 g/dL (31.0-37.0); MCV 93.4 fL (80.0-100.0); MEAN PLATELET VOLUME 11.3 fL (7.4-10.4); MONOCYTES 5.4 % (2-11); NEUTROPHILS 75.7 % (40-80); PLATELET COUNT 307 10x3/uL (130-400); RBC 3.65 10x6/uL (4.00-5.40); WBC 11.7 10x3/uL (4.8-10.8)
[2018-02-02 07:02] LABS: ANION GAP 13.9 mmol/L (8-16); CALCIUM 9.3 mg/dL (8.5-10.1); CARBON DIOXIDE 25.4 mmol/L (21.0-32.0); CREATININE - SERUM 0.9 mg/dL (0.6-1.3); POTASSIUM - SERUM 4.3 mmol/L (3.5-5.1)
[2018-02-02 10:12] VITALS: BP 155/75
[2018-02-02 11:00] VITALS: BP 155/79
[2018-02-02 12:12] LABS: IMMUNOGLOBULIN A 145 mg/dL (87-352); IMMUNOGLOBULIN G 474 mg/dL (700-1600); IMMUNOGLOBULIN M 115 mg/dL (26-217)
[2018-02-02 15:00] VITALS: BP 152/89
[2018-02-02 20:00] VITALS: BP 143/72
[2018-02-03 05:51] LABS: BASOPHILS 0.1 % (0-2); EOSINOPHILS 0.1 % (0-7); HEMATOCRIT 35.6 % (36.0-48.0); HEMOGLOBIN 11.7 g/dL (12-16); IMMATURE GRANULOCYTES 0.9 % (0-5); LYMPHOCYTES 32.6 % (15-50); MCH 30.7 pg (26.0-34.0); MCHC 32.9 g/dL (31.0-37.0); MCV 93.4 fL (80.0-100.0); MEAN PLATELET VOLUME 10.9 fL (7.4-10.4); MONOCYTES 11.5 % (2-11); NEUTROPHILS 54.8 % (40-80); PLATELET COUNT 305 10x3/uL (130-400); RBC 3.81 10x6/uL (4.00-5.40); WBC 11.7 10x3/uL (4.8-10.8)
[2018-02-03 06:42] LABS: ALBUMIN 2.7 g/dL (3.4-5.0); ANION GAP 14.2 mmol/L (8-16); BILIRUBIN - TOTAL 0.24 mg/dL (0.2-1.3); CALCIUM 9.1 mg/dL (8.5-10.1); CARBON DIOXIDE 24.1 mmol/L (21.0-32.0); MAGNESIUM - SERUM 2.1 mg/dL (1.8-2.4); POTASSIUM - SERUM 4.3 mmol/L (3.5-5.1); PROTEIN - SERUM 6.2 g/dL (6.4-8.2)
[2018-02-03 06:59] VITALS: BP 77/53
[2018-02-03 12:16] VITALS: BP 132/71
[2018-02-03 14:50] VITALS: Ht 165.1 cm; Wt 77.3 kg
[2018-02-03 21:09] VITALS: BP 143/70
[2018-02-04 01:23] VITALS: BP 126/66
[2018-02-04 06:15] VITALS: BP 163/86
[2018-02-04 06:46] LABS: BASOPHILS 0.1 % (0-2); EOSINOPHILS 1.1 % (0-7); HEMATOCRIT 36.2 % (36.0-48.0); HEMOGLOBIN 12.1 g/dL (12-16); IMMATURE GRANULOCYTES 1.6 % (0-5); LYMPHOCYTES 31.3 % (15-50); MCH 30.9 pg (26.0-34.0); MCHC 33.4 g/dL (31.0-37.0); MCV 92.6 fL (80.0-100.0); MEAN PLATELET VOLUME 10.3 fL (7.4-10.4); MONOCYTES 13.6 % (2-11); NEUTROPHILS 52.3 % (40-80); PLATELET COUNT 298 10x3/uL (130-400); RBC 3.91 10x6/uL (4.00-5.40); RDW 14.8 % (11.5-14.5); WBC 11.8 10x3/uL (4.8-10.8)
[2018-02-04 07:03] LABS: ALBUMIN 2.7 g/dL (3.4-5.0); ALKALINE PHOSPHATASE 80 U/L (46-116); ALT (SGPT) 25 U/L (10-68); CALC OSMOLALITY 284 mosm/kg (275-300); CALCIUM 8.9 mg/dL (8.5-10.1); CARBON DIOXIDE 24.8 mmol/L (21.0-32.0); CHLORIDE - SERUM 105 mmol/L (98-107); CREATININE - SERUM 0.8 mg/dL (0.6-1.3); GLUCOSE 90 mg/dL (74-106); MAGNESIUM - SERUM 2.1 mg/dL (1.8-2.4); PROTEIN - SERUM 6.6 g/dL (6.4-8.2); SODIUM 140 mmol/L (136-145); UREA NITROGEN 29 mg/dL (7-18); eGFR NON AFRICAN AMERICAN 75 mL/min (90-120)
[2018-02-04 08:17] VITALS: BP 160/91
[2018-02-04 13:00] VITALS: BP 160/80
[2018-02-04] MEDS ORDERED: SINGULAIR10 MG PO ×4 (14:20→15:46)
[2018-02-05 13:15] LABS: IMMUNOGLOBULIN E 15 IU/mL (0-100)
[2018-02-07 18:07] LABS: AEROBE ID Final report (()); RESULT 1 Pantoea species (())
== END 2018-02-04 17:43 | disposition home or self-care (01) | DRG 202 ==
LOC: D.ER 23:46 → D.M2 01-27 02:54 → OBSVTIME 01-27 02:54 → D.M2 01-29 15:13
PROVIDERS: Emergency Medicine; Family Medicine; Internal Medicine Gastroenterology; Internal Medicine Nephrology; Internal Medicine Pulmonary Disease
DX: J45.909 Unspecified asthma, uncomplicated (principal); J98.11 Atelectasis; K21.9 Gastro-esophageal reflux disease without esophagitis; I10 Essential (primary) hypertension; M06.9 Rheumatoid arthritis, unspecified; M79.7 Fibromyalgia; G25.81 Restless legs syndrome; D64.9 Anemia, unspecified; K44.9 Diaphragmatic hernia without obstruction or gangrene; J32.9 Chronic sinusitis, unspecified; I07.1 Rheumatic tricuspid insufficiency; N28.1 Cyst of kidney, acquired

== ENCOUNTER 2018-03-05 10:55 | Outpatient (CLI) | payer MEDICARE, OTHER ==
[2018-02-03 14:50] VITALS: BMI 28.2
[~2018-03-05 10:55] MED LIST changes: +CARAFATE1 G PO; +SINGULAIR10 MG PO
== END 2018-03-05 12:30 ==
LOC: D.OPS 10:55
DX: K21.9 Gastro-esophageal reflux disease without esophagitis (principal); Z01.812 Encounter for preprocedural laboratory examination

== ENCOUNTER → 2018-03-18 05:36 | Day surgery (SDC) | payer MEDICARE, OTHER ==
[~2018-03-18] VITALS: Ht 165.1 cm; Wt 77.3 kg
[~2018-03-18 05:36] MED LIST changes: +ARAVA10 MG PO; +ENBREL SURECLICK; +ENBREL25 MG/0.5 SQ; +NORCO 10-325 TA1 TAB PO
[2018-03-18 06:12] LABS: HEMATOCRIT 41.5 % (36.0-48.0); HEMOGLOBIN 13.6 g/dL (12-16); MCH 30.6 pg (26.0-34.0); MCHC 32.8 g/dL (31.0-37.0); MCV 93.3 fL (80.0-100.0); MEAN PLATELET VOLUME 10.5 fL (7.4-10.4); RBC 4.45 10x6/uL (4.00-5.40); RDW 14.1 % (11.5-14.5); WBC 7.6 10x3/uL (4.8-10.8)
[2018-03-18 07:12] VITALS: BP 123/67; Ht 165.1 cm; Wt 77.3 kg
--- NOTE | 2018-03-18 10:55 | NUR ---
1010-PT. ESCORTED VIA WHEELCHAIR TO PERSONAL CAR, LEFT WITH FAMILY MEMBER DRIVING.
--- NOTE | 2018-03-18 18:53 | OP ---
PATIENT NAME: LIN HIGUERA MEDICAL RECORD: [id number] :[birth year] LOCATION:D.OPS ADMISSION DATE: SURGEON: SHABBIR CRISTINA MD DATE OF OPERATION: 03/18/2018 PREOPERATIVE DIAGNOSES: Paraesophageal hernia; gastroesophageal reflux disease, intractable. POSTOPERATIVE DIAGNOSES: Paraesophageal hernia; gastroesophageal reflux disease, intractable; gastric polyp, fundus, 1.1 cm. PROCEDURES: 1. Esophagogastroduodenoscopy without biopsies. 2. Placement of Meredith device. 3. Gastric hot biopsy forceps polypectomy. SURGEON: Shabbir Cristina MD ARTIST COLOR SEPARATION: None. BLOOD LOSS: Minimal. ANESTHESIA: IV sedation. COMPLICATIONS: None. The risks, possible complications and alternatives to procedure were explained to the patient. She elects to proceed. ENDOSCOPIC COURSE: The patient was conveyed to the endoscopy suite electively on 03/18/2018. IV sedation was induced by the anesthesia staff. A bite block was inserted. A gastroscope was inserted into the mouth. Advanced easily into the hypopharynx. The esophagus was easily intubated as were the stomach and duodenum. Upon withdrawal, retroflexed and angulus views were obtained. No biopsies were obtained. There was a gastric polyp. It was removed in its entirety utilizing the hot biopsy forceps polypectomy technique. I then withdrew into the distal esophagus. Measurements were obtained. The EG junction was 35 cm. I then withdrew the endoscope completely. I advanced the Meredith device through the mouth. I watched it as it traveled down the hypopharynx into the esophagus and then I positioned at 6 cm from the EG junction. Suction was applied. The Meredith device was deployed. The deployment device was removed. The Meredith device was fixed to the esophagus. The endoscope was withdrawn under direct vision. The patient will be following up with me in the office in 2-3 weeks. We will review the results of the Meredith study at that time and plan for her paraesophageal hernia repair and antireflux procedure. TRANSINT:[id number] Voice Confirmation ID: [id number] DOCUMENT ID: [id number] OPERATIVE REPORT [id number] LIN HIGUERA SHABBIR CRISTINA MD at 4453 CC: FABIAN MURPHY and MONTEZ KEITA MD [id number] DICTATION DATE: 03/18/18 0921 LOADING SHOVEL OILER: 03/18/18 1049 REG [facility] [address] [place] [address]
== END | disposition home or self-care (01) ==
LOC: D.OPS 05:36
PROVIDERS: Anesthesiology
DX: K44.9 Diaphragmatic hernia without obstruction or gangrene (principal); K31.7 Polyp of stomach and duodenum

== ENCOUNTER 2018-04-20 06:00 | Inpatient (IN) | payer MEDICARE, OTHER ==
[2018-04-17 16:26] LABS: HEMATOCRIT 42.7 % (36.0-48.0); HEMOGLOBIN 13.8 g/dL (12-16); MCH 29.6 pg (26.0-34.0); MCHC 32.3 g/dL (31.0-37.0); MCV 91.6 fL (80.0-100.0); MEAN PLATELET VOLUME 10.7 fL (7.4-10.4); RBC 4.66 10x6/uL (4.00-5.40); RDW 15.4 % (11.5-14.5); WBC 7.7 10x3/uL (4.8-10.8)
[2018-04-17 16:36] LABS: CALC OSMOLALITY 279 mosm/kg (275-300); CARBON DIOXIDE 23.7 mmol/L (21.0-32.0); CHLORIDE - SERUM 102 mmol/L (98-107); CREATININE - SERUM 0.8 mg/dL (0.6-1.3); GLUCOSE 111 mg/dL (74-106); POTASSIUM - SERUM 4.1 mmol/L (3.5-5.1); SODIUM 139 mmol/L (136-145); UREA NITROGEN 15 mg/dL (7-18); eGFR NON AFRICAN AMERICAN 75 mL/min (90-120)
[~2018-04-20] VITALS: Ht 165.1 cm; Wt 74.5 kg
[~2018-04-20 06:00] MED LIST changes: -ARAVA10 MG PO; -ENBREL SURECLICK; -ENBREL25 MG/0.5 SQ; -NORCO 10-325 TA1 TAB PO
[2018-04-20] MEDS ORDERED: ULTRAM50 MG PO (06:37)
[2018-04-20] MEDS ORDERED: ENBREL SURECLICK (06:37)
[2018-04-20] MEDS ORDERED: ENBREL25 MG/0.5 SQ (06:38)
[2018-04-20] MEDS ORDERED: ARAVA10 MG PO (06:39)
[2018-04-20 06:42] VITALS: BP 140/84; BMI 26.8
--- NOTE | 2018-04-20 11:39 | NUR ---
PHASE I COMPLETE, OPT READY FOR D/C. NO BED AVAILABLE ON MED/SURG, NO BED AVAILABLE IN OUTPT. TRANSITIONING PT TO PHASE II, VS Q15MIN.
--- NOTE | 2018-04-20 12:07 | NUR ---
1200 FAMILY RETURNED TO ROOM ICE CAP TO ABD, LEFT EYE PUFFY.
--- NOTE | 2018-04-20 12:59 | NUR ---
PT STATES HAVING PAIN. WAITING FOR PHARMACY TO BRING PAIN MED TO UNIT (UNAVAILABLE AT THIS TIME IN OUR P[facility])
--- NOTE | 2018-04-20 16:09 | NUR ---
3170 REPORT PHONED TO ARLENE DAVENPORT RN
[2018-04-20 17:52] VITALS: BP 178/87; Ht 165.1 cm; Wt 74.5 kg
--- NOTE | 2018-04-20 20:00 | NUR ---
ALERT AND ORIENTATED RESTING IN BED ABD WITH 6 SMALL INCISIONS WITH STERI STRIPS INTACT IV INFUSING WITHOUT DIFFICULTY LEADLIGHTER IN USE FOR PAIN CONTROL CALL LIGHT IN REACH DENIES ANY NEEDS AT THIS TIME
[2018-04-20 21:13] VITALS: BP 135/69
[2018-04-21 01:32] VITALS: BP 145/67
[2018-04-21 05:23] VITALS: BP 148/74
[2018-04-21 08:07] VITALS: BP 154/72
[2018-04-21] MEDS ORDERED: NORCO 10-325 TA1 TAB PO (10:47)
[2018-04-21 12:39] VITALS: BP 136/70
--- NOTE | 2018-04-22 18:26 | OP ---
PATIENT NAME: LIN HIGUERA MEDICAL RECORD: [id number] :[birth year] LOCATION:D.MS [id number] ADMISSION DATE:04/21/18 SURGEON: SHABBIR CRISTINA MD DATE OF OPERATION: 04/20/2018 PREOPERATIVE DIAGNOSES: 1. Volume reflux. 2. Intractable gastroesophageal reflux disease. 3. Paraesophageal hernia. POSTOPERATIVE DIAGNOSES: 1. Volume reflux. 2. Intractable gastroesophageal reflux disease. 3. Paraesophageal hernia. PROCEDURES: 1. Laparoscopic paraesophageal hernia repair. 2. laparoscopic Kasandra fundoplication. SURGEON: Shabbir Cristina MD COMMUNICATION CENTER OPERATOR: Dr. LILIA Parra. BLOOD LOSS: Less than 25 mL. ANESTHESIA: General. COMPLICATIONS: None. The risks, possible complications and alternatives to procedure were explained to the patient. She elects to proceed. The discussion specifically included, but was not limited to, bleeding requiring emergency reoperation, infection, esophageal perforation, gastric perforation, recurrent reflux, recurrent paraesophageal or hiatal hernias. OPERATIVE COURSE: The patient was conveyed to the operating room electively on 04/20/2018. General anesthesia was induced by the anesthesia staff. The abdomen was sterilely prepped and draped. Utilizing the Optiview device, an 11-mm trocar was inserted cephalad to the umbilicus. Under direct internal vision utilizing the television camera, a 12-mm trocar was inserted in the right periumbilical area and another trocar this time a 5-mm trocar was inserted in the right side of the abdomen. Two 5-mm trocars were inserted in the left side of the abdomen. Through the skin incision just to the left of the xiphoid process, the Hong retractor was placed and used to elevate the left lateral segment of the liver. We took down the gastrohepatic ligament with the Harmonic scalpel. The phrenicoesophageal ligament was taken down with the Harmonic scalpel. I then cleaned both crura of the diaphragm with the Harmonic scalpel. A retroesophageal window was created bluntly. A mediastinal dissection was performed, and the hernia sac was excised. At no time was there any esophageal injury. We were able to mobilize about 4 cm of esophagus and pulled this down into the intra-abdominal compartment. At no time was there any apparent injury to the aorta, vena cava, or lungs. OPERATIVE REPORT [id number] LIN HIGUERA The esophagogastric fat pad was then excised with the Harmonic scalpel. While retracting the esophagus anteriorly, a posterior crural repair of the paraesophageal hernia was performed utilizing a 0 Stratafix suture. I was very satisfied with the repair. This was a 3 suture repair. I then went about the Kasandra fundoplication. I grasped the fundus of the stomach and brought it around behind the esophagus. I then sutured fundus of the stomach to esophagus to fundus of the stomach for an anterior fundoplication utilizing the Stratafix PDS suture. This was a 3 suture repair. I was quite satisfied with the fundoplication and it did not appear to be too tight. We irrigated and aspirated. There was no bleeding even at low pressure of 8. The 11-mm and 12-mm trocar sites were closed by closing the fascia with 0 Vicryl sutures and the skin at all the operative sites was closed with interrupted intracuticular 4-0 Monocryl sutures after the Hong retractor had been removed. Sterile dressings were applied. The patient was then extubated and conveyed to post-anesthesia care unit where she was in stable condition. TRANSINT:[id number] Voice Confirmation ID: [id number] DOCUMENT ID: [id number] SHABBIR CRISTINA MD at 1826 CC: ROSEY BULLARD MD, MONTEZ KEITA MD and CLAY KEEN [id number] DICTATION DATE: 04/20/18 1107 CENSUS ENUMERATOR: 04/20/18 1606 DIS IN 04/21/18 [place] [place] [id number] [place] [address]
== END 2018-04-21 13:33 | disposition home or self-care (01) | DRG 328 ==
LOC: D.OPS 06:00 → D.PAN 08:15 → D.OPS 09:45 → D.MS 10:57 → D.OPS 16:42 → D.MS 16:42 → D.OPS 04-21 07:23 → D.MS 04-21 07:23 → D.OPS 04-21 07:23 → D.MS 04-21 13:33
PROVIDERS: Anesthesiology; ADMIT Surgery
PROC: 0DV44ZZ Restriction of Esophagogastric Junction, Percutaneous Endoscopic Approach (ICD-10-PCS; principal; 2018-04-20 08:15)
PROC: 0BQT4ZZ Repair Diaphragm, Percutaneous Endoscopic Approach (ICD-10-PCS; 2018-04-20 08:15)
DX: K44.9 Diaphragmatic hernia without obstruction or gangrene (principal); K21.9 Gastro-esophageal reflux disease without esophagitis; I10 Essential (primary) hypertension; G25.81 Restless legs syndrome; M06.9 Rheumatoid arthritis, unspecified; M79.7 Fibromyalgia

== ENCOUNTER → 2018-05-19 14:30 | Outpatient (CLI) | payer MEDICARE, OTHER ==
[2018-04-20 17:52] VITALS: BMI 27.3
[~2018-05-19 14:30] MED LIST changes: +ARAVA10 MG PO; +ENBREL SURECLICK; +ENBREL25 MG/0.5 SQ; +NORCO 10-325 TA1 TAB PO
== END | disposition home or self-care (01) ==
LOC: D.LABREF 14:30
PROVIDERS: ATTEND Nurse Practitioner Family
DX: Z09 Encounter for follow-up examination after completed treatment for conditions other than malignant neoplasm (principal)

== ENCOUNTER 2018-07-30 19:00 | Outpatient (CLI) | payer MEDICARE, OTHER ==
[2018-04-20 17:52] VITALS: BMI 27.3
== END 2018-07-30 23:59 | disposition home or self-care (01) ==
LOC: D.MAMMO 19:00
PROVIDERS: ATTEND Family Medicine
DX: Z12.31 Encounter for screening mammogram for malignant neoplasm of breast (principal)

== ENCOUNTER → 2018-07-31 16:32 | Outpatient (CLI) | payer MEDICARE, OTHER ==
[2018-04-20 17:52] VITALS: BMI 27.3
== END | disposition home or self-care (01) ==
LOC: D.MAMMO 09:00 → D.US 08-20 08:30
PROVIDERS: ATTEND Family Medicine
DX: R92.8 Other abnormal and inconclusive findings on diagnostic imaging of breast (principal)

== ENCOUNTER 2019-02-03 09:00 | Outpatient (CLI) | payer MEDICARE, OTHER ==
[2018-04-20 17:52] VITALS: BMI 27.3
== END 2019-02-03 10:00 | disposition home or self-care (01) ==
LOC: D.MAMMO 09:00
PROVIDERS: ATTEND Family Medicine
DX: R92.8 Other abnormal and inconclusive findings on diagnostic imaging of breast (principal)

== ENCOUNTER → 2019-08-14 14:26 | Outpatient (CLI) | payer MEDICARE, OTHER ==
[2018-04-20 17:52] VITALS: BMI 27.3
== END | disposition home or self-care (01) ==
LOC: D.LABREF 14:26
PROVIDERS: ATTEND Internal Medicine Pulmonary Disease
DX: R06.02 Shortness of breath (principal)

== ENCOUNTER → 2019-08-17 10:48 | Outpatient (CLI) | payer MEDICARE, OTHER ==
[2018-04-20 17:52] VITALS: BMI 27.3
== END | disposition home or self-care (01) ==
LOC: D.RT 04-08 09:00
PROVIDERS: ATTEND Internal Medicine Pulmonary Disease
DX: J45.909 Unspecified asthma, uncomplicated (principal); K64.9 Unspecified hemorrhoids

== ENCOUNTER → 2020-08-07 07:25 | Outpatient (CLI) | payer MEDICARE, OTHER ==
[2018-04-20 17:52] VITALS: BMI 27.3
== END | disposition home or self-care (01) ==
LOC: D.US 07:25
PROVIDERS: ATTEND Internal Medicine Gastroenterology
DX: R19.7 Diarrhea, unspecified (principal)

== ENCOUNTER → 2020-08-30 09:35 | Outpatient (CLI) | payer MEDICARE, OTHER ==
[2018-04-20 17:52] VITALS: BMI 27.3
== END | disposition home or self-care (01) ==
LOC: D.NM 09:30
PROVIDERS: ATTEND Internal Medicine Gastroenterology
DX: R11.0 Nausea (principal); R19.7 Diarrhea, unspecified